=== PATIENT | male | born 1950 | race Caucasian/White ===

== ENCOUNTER → 2016-06-20 | Outpatient (CLI) | payer OTHER, MEDICAID | LOC: BMCIMAGING 11:36 | PROVIDERS: ATTEND Emergency Medicine | DX: S82.61XA Displaced fracture of lateral malleolus of right fibula, initial encounter for closed fracture (principal); M17.11 Unilateral primary osteoarthritis, right knee; M11.261 Other chondrocalcinosis, right knee; M25.461 Effusion, right knee ==

== ENCOUNTER → 2016-07-02 | Outpatient (CLI) | payer OTHER, MEDICAID | LOC: BMCIMAGING 10:04 | PROVIDERS: ATTEND Family Medicine | DX: S82.64XA Nondisplaced fracture of lateral malleolus of right fibula, initial encounter for closed fracture (principal); X58.XXXA Exposure to other specified factors, initial encounter; M17.11 Unilateral primary osteoarthritis, right knee; M23.41 Loose body in knee, right knee ==

== ENCOUNTER → 2016-07-27 | Outpatient (CLI) | payer OTHER, MEDICAID | LOC: BMCIMAGING 08:32 | PROVIDERS: ATTEND Family Medicine | DX: S82.401D Unspecified fracture of shaft of right fibula, subsequent encounter for closed fracture with routine healing (principal); M17.11 Unilateral primary osteoarthritis, right knee ==

== ENCOUNTER → 2016-08-01 | Outpatient (CLI) | payer OTHER, MEDICAID ==
[~2016-08-01] MED LIST: IOPAMIDOL (ISOVUE-300) 100 ML BTL IV ONE
== END ==
LOC: FIMAGING 15:59
PROVIDERS: ATTEND Physician Assistant
DX: C61 Malignant neoplasm of prostate (principal); Q61.3 Polycystic kidney, unspecified; N30.90 Cystitis, unspecified without hematuria; K59.00 Constipation, unspecified; N28.1 Cyst of kidney, acquired; K76.9 Liver disease, unspecified
CPT/HCPCS: 74177; Q9967

== ENCOUNTER 2017-01-12 14:25 | Emergency (ER) | payer OTHER, MEDICAID ==
[2017-01-12 14:41] VITALS: TEMP 98.1
[2017-01-12] MEDS ORDERED: IBUPROFEN 200 MG TAB PO ONE ×2 (15:24→15:37)
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
[2017-01-12 16:20] VITALS: BP 140/84; PULSE 72; RESP 18; O2SAT 96
== END 2017-01-12 16:20 | disposition home or self-care (01) ==
PROC: 09Q0XZZ Repair Right External Ear, External Approach (ICD-10-PCS; principal; 2017-01-12)
DX: S01.311A Laceration without foreign body of right ear, initial encounter (principal); S10.81XA Abrasion of other specified part of neck, initial encounter; J45.909 Unspecified asthma, uncomplicated; I10 Essential (primary) hypertension; Z85.46 Personal history of malignant neoplasm of prostate; Z87.891 Personal history of nicotine dependence; Y04.2XXA Assault by strike against or bumped into by another person, initial encounter